=== PATIENT | male | born 1955 | race Caucasian/White ===

== ENCOUNTER 2024-12-01 13:00 | Emergency (ER) | payer SELFPAY ==
[~2024-12-01] VITALS: Ht 188 cm; Wt 83.0 kg
[2024-12-01] MEDS ORDERED: OCUFLOX511 BOTHEARS (13:31)
== END 2024-12-01 14:04 | disposition home or self-care (01) ==
LOC: ER 13:00
DX: H60.93 Unspecified otitis externa, bilateral (principal)
CPT/HCPCS: 99282

== ENCOUNTER 2025-02-26 05:32 | Emergency (ER) | payer MEDICARE, OTHER ==
[~2025-02-26] VITALS: Ht 182.9 cm; Wt 83.0 kg
[~2025-02-26 05:32] MED LIST: OCUFLOX511 BOTHEARS
[2025-02-26] MEDS ORDERED: CIPROFLOX-DEXA7.5 ML LEFTEAR (06:53)
== END 2025-02-26 07:04 | disposition home or self-care (01) ==
LOC: ER 05:32
DX: H66.42 Suppurative otitis media, unspecified, left ear (principal); H72.92 Unspecified perforation of tympanic membrane, left ear
CPT/HCPCS: 99282